=== PATIENT | male | born 1975 | race Caucasian/White ===

== ENCOUNTER 2016-04-15 11:19 | Emergency (ER) | payer OTHER ==
[~2016-04-15] VITALS: Ht 177.8 cm; Wt 88.6 kg
[2016-04-15 11:22] VITALS: BP 146/94; PULSE 68; RESP 15; O2SAT 98
--- NOTE | 2016-04-15 13:05 | ED.REPORT ---
HPI-Extremity Problem Upper Date of Service Apr 15, 2016 ED Provider: Lasha Go MD The patient is a 40 year old male with a hx of chronic left shoulder pain who presents to the ED with increased left shoulder pain. This weekend he was shooting a bow and aggravated the muscles. Pain is exacerbated by extension and movement. Nursing Notes Stated Complaint: LEFT SHOULDER PAIN Chief Complaint: Extremity Trauma Nursing Notes Reviewed: Yes Allergies: Coded Allergies: No Known Allergies (Unverified , 04/15/16) General Time Seen by MD: 13:04 Chief Complaint Other (left shoulder pain) Hx Obtained From: Patient Arrived By: Walk-in Onset Occurred: 1 day ago Symptom Duration: Since onset Caused by: Sports injury Location: : Shoulder left Severity: Current: Mild Exacerbated by: Extension, Movement Recent Healthcare: No recent doctor visit, No recent hospitalization Similar Sx Previous: No Past Medical History Past Medical History chronic left shoulder pain Past Surgical History denies Smoking History Unknown if Ever Smoker Ambulatory Status Independent Review of Systems Musculoskeletal: Reports: Joint pain (left shoulder ) Complete sys rev & neg: except as marked. Physical Exam Initial Vital Signs Vital Signs (First) Date Time Temp Pulse Resp B/P Pulse Ox O2 Delivery O2 Flow Rate FiO2 04/15/16 11:22 36.3 68 15 146/94 98 Room Air Initial VS: Reviewed Head / Eyes: Atraumatic, Normocephalic, PERRL ENT: Mucous membranes moist, Conjunctiva normal, No scleral icterus Neck: Supple, Non-tender, Full range of motion Respiratory: Breath sounds normal, Clear to auscultation, No respiratory distress Cardiovascular: Regular rate & rhythm, Heart sounds normal, Intact distal pulses Abdomen / GI: Soft, Non-tender, No guarding, No rebound, No distention Lower Extremities: Vascular intact, Neuro intact, No swelling, No tenderness Skin: Warm, Dry, No cyanosis Neurologic: Alert, Oriented, Nonfocal Psychiatric: Mood/affect normal, Behavior normal, Normal thought content General/Constitutional: Awake, Alert, Well appearing, Cooperative, Not toxic appearing Left Shoulder: Positive: Tenderness present... Difficulty with abduction and reachign upwards Tender with minimal motion No bony point tenderness No warmth or erythema Tenderness in anterior joint capsule No tenderness over lateral deltoid Full ROM at shoulder joint Full range of motion Procedures Procedure Notes: Left shoulder joint injection. Indication; pain, inflammation. no evidence of infection 40 mg of Kenalog and 1 mL of 0.5% bupivacaine without epinephrine is injected he had anterior approach sterile touch technique left shoulder. With injecting fluid there is no resistance and minimal pain. Significant pain relief within minutes of injection. Patient tolerated procedure well Re-Eval/Medical Decision Re-Evaluation/Progress #1: Time of Eval: 14:23 Patient Status: Mild relief Re-Evaluation/Progress Note: Pt rechecked. Steroid shot given to left shoulder. 40 mg of Kenelog. Pt tolerated procedure well. Re-Evaluation/Progress #2: Time of Eval: 14:33 Patient Status: Condition improved, Moderate relief Re-Evaluation/Progress Note: Pt rechecked 10 min after procedure and has experienced substantial relief from shot. F/U and RTER warnings given. All questions addressed. Counseled Regarding: Diagnosis, Lab results, Need for follow-up, When/why to return to ED Discharge & Departure Impression: Primary Impression: Shoulder joint pain Disposition: Home Discharge Condition All VS Reviewed: Yes Condition: Stable Additional Instructions: Your shoulder joint seems to be the area of concern. It does not seem to be a rotator cuff tear. This is likely an overuse injury related to using your boat this weekend. We did a steroid injection with 40 mg of Kenalog and some numbing medicine as well into your left shoulder joint in the emergency department. You tolerated this well. As the numbing medicine wears off I am hoping that the pain will be significantly less as the steroid begins to work. you may notice some shoulder joint fullness because of the volume of fluid with injected. He will need to follow-up with either your primary care physician or an orthopedic surgeon. Continue the name of our orthopedist here at [facility] welcome to see any of the orthopedists out at [facility] as well I hope this helps and you feel better. Referrals: NOPCP (PCP) EDSupervising Provider for APC: Lasha Go MD Attending Statement Attending attestation: I saw this patient in conjunction with Dayron Hope PA-C. I agree with the workup, evaluation, treatment and disposition. Lasha Go MD copies to: Kvng Schwab Beck O MD Apr 15, 2016 13:05 GERRY GRANADO Apr 15, 2016 14:00 Consuelo Shields MD Apr 15, 2016 15:59
[2016-04-15] MEDS ORDERED: Triamcinolone Acet 40 mg/mL 5 mL Inj INTRARTICU ONE (13:55)
== END 2016-04-15 14:35 | disposition home or self-care (01) ==
LOC: SED 11:19
DX: M25.512 Pain in left shoulder (principal); X50.1XXA Overexertion from prolonged static or awkward postures, initial encounter; Y93.89 Activity, other specified; Y92.89 Other specified places as the place of occurrence of the external cause; Y99.8 Other external cause status
CPT/HCPCS: 20610; 99283; J3301